=== PATIENT | female | born 1950 | race Caucasian/White ===

== ENCOUNTER 2016-09-26 14:50 | Emergency (ER) | payer MEDICARE, BC ==
[2016-09-26 15:19] VITALS: BP 154/93
[2016-09-26] MEDS ORDERED: Bacitracin Oint 1 GM U/D Packet TOP ONE (15:25)
[2016-09-26] MEDS ORDERED: HYDROmorphone 1 MG/ML Syringe IM ONE (15:25)
[2016-09-26] MEDS ORDERED: Lidocaine 1% 20 ML MDV INJECT ONE (15:26)
--- NOTE | 2016-09-26 15:29 | EDM.PDOC ---
ED HPI GENERAL MEDICAL PROBLEM - General Chief Complaint: Upper Extremity Injury/Pain Stated Complaint: RIGHT PINKY FINGER SMASHED IN BOAT LIFT Time Seen by Provider: 09/26/16 15:24 Source of Information: Reports: Patient, Family, RN Notes Reviewed History Limitations: Reports: No Limitations - History of Present Illness INITIAL COMMENTS - FREE TEXT/NARRATIVE: 66-year-old female presents emergency department today with a crush injury to her fifth digit on her right hand she accidentally got this caught in a boat lift distal aspect did get caught she does have a laceration and she has difficulty moving the distal aspect of that finger Right Hand Pain Score (Numeric/FACES): 9 - Related Data Allergies Allergy/AdvReac Type Severity Reaction Status Date / Time Sulfa (Sulfonamide Allergy Rash Verified 09/26/16 15:17 Antibiotics) Home Meds: Home Meds Levothyroxine [Synthroid] 75 mcg PO ACBRK 09/04/13 [History] Simvastatin [Zocor] 20 mg PO BEDTIME 09/04/13 [History] Rivaroxaban [Xarelto] 20 mg PO DAILY 09/26/16 [History] amLODIPine [Norvasc] 1 tab PO DAILY 09/26/16 [History] Past Medical History Cardiovascular History: Reports: High Cholesterol, Hypertension Endocrine/Metabolic History: Reports: Hypothyroidism Social & Family History - Tobacco Use Smoking Status *Q: Never Smoker Second Hand Smoke Exposure: No - Alcohol Use Days Per Week of Alcohol Use: 0 - Recreational Drug Use Recreational Drug Use: No Review of Systems - Review of Systems Review Of Systems: See Below Constitutional: Reports: No Symptoms Musculoskeletal: Reports: Other (Finger pain) Skin: Reports: Wound Neurological: Reports: No Symptoms ED EXAM, GENERAL - Physical Exam Exam: See Below Free Text/Narrative:: Examination of the right hand she does have a laceration along the lateral aspect of the nail on digit #5 she has limited range of motion of the distal aspect of digit #5 I don't appreciate any significant deformity, radial pulse is 2+ sensation is intact. After digital blockade closer examination of the nail bed nail is partially avulsed there is a laceration underneath the nail bed ED TRAUMA EXTREMITY PROCEDURES - Laceration/Wound Repair Finger Lac/Wound Length In cm: 0.5 (Nail bed repair) Appearance: Irregular Distal NVT: Neuro & Vascular Intact, No Tendon Injury Anesthetic Type: Digital Local Anesthesia - Lidocaine (Xylocaine): 1% Plain Local Anesthetic Volume: 3cc Skin Prep: Chlorhexidine (Hibiciens) Saline Irrigation (cc's): 20 Exploration/Debridement/Repair: Wound Explored, in a Bloodless Field, Explored to Base Closed With: Sutures Suture Size: other (6-0) # of Sutures: 2 (2 sutures were used to replaced the nail on top of the nail bed ) Suture Type: Prolene Sterile Dressing Applied: Nurse Tetanus Status Addressed: Yes (2010) Complications: No Course - Vital Signs Last Recorded V/S: Last Vital Signs Temp 99.0 F 09/26/16 15:16 Pulse 84 09/26/16 15:16 Resp 16 09/26/16 15:16 BP 154/93 H 09/26/16 15:16 Pulse Ox 96 09/26/16 15:16 - Orders/Labs/Meds Meds: Medications Discontinued Medications Generic Name Dose Route Start Last Admin Trade Name Freq PRN Reason Stop Dose Admin Bacitracin 1 dose 09/26/16 15:25 09/26/16 15:32 Bacitracin Oint 1 Gm TOP 09/26/16 15:26 1 dose ONETIME ONE Administration Cefazolin Sodium 1 gm 09/26/16 17:03 09/26/16 17:26 Ancef IM 09/26/16 17:04 1 gm ONETIME ONE Administration Hydromorphone HCl 1 mg 09/26/16 15:25 09/26/16 15:32 Dilaudid IM 09/26/16 15:26 1 mg ONETIME ONE Administration Lidocaine HCl 20 ml 09/26/16 15:26 09/26/16 15:32 Xylocaine 1% INJECT 09/26/16 15:27 20 ml ONETIME ONE Administration Silver Nitrate Confirm 09/26/16 16:46 09/26/16 17:25 Silver Nitrate Administered 09/26/16 16:47 Not Given Dose 1 each .ROUTE .STK-MED ONE Silver Nitrate 1 each 09/26/16 17:04 09/26/16 17:05 Silver Nitrate TOP 09/26/16 17:05 1 each ONETIME ONE Administration Sterile Water 2.5 ml 09/26/16 17:16 09/26/16 17:26 Sterile Water For Injection INJECT 09/26/16 17:17 2.5 ml NOW STA Administration Sterile Water Confirm 09/26/16 17:15 09/26/16 17:25 Sterile Water For Injection Administered 09/26/16 17:16 Not Given Dose 10 ml .ROUTE .STK-MED ONE Departure - Departure Time of Disposition: 17:07 Disposition: Home, Self-Care 01 Condition: Good Clinical Impression: Open fracture of phalanx of right little finger Qualifiers: Encounter type: initial encounter Phalanx: distal Fracture alignment: nondisplaced Qualified Code(s): S62.666B - Nondisplaced fracture of distal phalanx of right little finger, initial encounter for open fracture - Discharge Information Instructions: Crush Injury, Fingers or Toes, [id number], Laceration Care, Adult, [id number] Referrals: Tess aCtalan PA [Primary Care Provider] - Forms: ED Department Discharge Additional Instructions: Take full course of antibiotics, use hydrocodone as needed for pain control, please follow-up with orthopedics on at 9:45 AM, call return to the emergency department worsening of symptoms - Assessment/Plan Plan: Assessment Acuity = acute Site and laterality = crush injury with fracture of distal aspect digit #5 right hand with nail bed laceration status post repair Etiology = crush injury on a boat lift Manifestations = pain Location of injury = Home Lab values = none Plan Called discussed case with orthopedics on-call they would like to see patient in clinic next at 939 morning, she will be placed on antibiotics of Keflex 1500 mg per day pain control hydrocodone total #20 she was given 1 g Ancef prior to discharge Patient was in agreement with the plan all questions were answered, they were instructed to return to the emergency department or call for worsening symptoms. This note was dictated using [employer] voice recognition software please call with any questions.
[2016-09-26] MEDS ORDERED: Silver Nitrate Applicator Each ONE (16:46)
[2016-09-26] MEDS ORDERED: ceFAZolin 1 GM Vial IM ONE (17:03)
[2016-09-26] MEDS ORDERED: Silver Nitrate Applicator Each TOP ONE (17:04)
[2016-09-26] MEDS ORDERED: Water For Injection, Sterile 10 ML SDV ONE (17:15)
[2016-09-26] MEDS ORDERED: WATER FOR INJECTION STERILE INJECT STA (17:16)
--- NOTE | 2016-09-27 09:18 | CR ---
Fingers Fifth Digit Rt F9 HISTORY: Injury COMPARISON: None FINDINGS: There is a fracture of the mid tuft of the right fifth finger with minimal displacement. N o foreign body seen.
--- NOTE | 2016-10-08 12:16 | EDM.PDOC ---
ED HPI GENERAL MEDICAL PROBLEM - General Chief Complaint: Upper Extremity Injury/Pain Stated Complaint: RIGHT PINKY FINGER SMASHED IN BOAT LIFT Time Seen by Provider: 09/26/16 15:24 Source of Information: Reports: Patient, Family, RN Notes Reviewed History Limitations: Reports: No Limitations - History of Present Illness INITIAL COMMENTS - FREE TEXT/NARRATIVE: Examination of the right hand she does have a laceration along the lateral aspect of the nail on digit #5 she has limited range of motion of the distal aspect of digit #5 I don't appreciate any significant deformity, radial pulse is 2+ sensation is intact. After digital blockade closer examination of the nail bed nail is partially avulsed there is a laceration underneath the nail bed Right Hand Pain Score (Numeric/FACES): 9 - Related Data Allergies Allergy/AdvReac Type Severity Reaction Status Date / Time Sulfa (Sulfonamide Allergy Rash Verified 09/26/16 15:17 Antibiotics) Home Meds: Home Meds Levothyroxine [Synthroid] 75 mcg PO ACBRK 09/04/13 [History] Simvastatin [Zocor] 20 mg PO BEDTIME 09/04/13 [History] Rivaroxaban [Xarelto] 20 mg PO DAILY 09/26/16 [History] amLODIPine [Norvasc] 1 tab PO DAILY 09/26/16 [History] Past Medical History Cardiovascular History: Reports: High Cholesterol, Hypertension 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: Reports: Musculoskeletal History: Reports: Osteoarthritis Endocrine/Metabolic History: Reports: Hypothyroidism - Past Surgical History HEENT Surgical History: Reports: LASIK, Other (See Below) Other HEENT Surgeries/Procedures: dental implants Cardiovascular Surgical History: Reports: Cardiac Ablation GI Surgical History: Reports: Cholecystectomy Female Surgical History: Reports: Hysterectomy, Other (See Below) Other Female Surgeries/Procedures: bladder repair Musculoskeletal Surgical History: Reports: Arthroscopic Knee, Knee Replacement Social & Family History - Tobacco Use Smoking Status *Q: Never Smoker Second Hand Smoke Exposure: No - Alcohol Use Days Per Week of Alcohol Use: 0 - Recreational Drug Use Recreational Drug Use: No ED EXAM, GENERAL - Physical Exam Free Text/Narrative:: Examination of the right hand she does have a laceration along the lateral aspect of the nail on digit #5 she has limited range of motion of the distal aspect of digit #5 I don't appreciate any significant deformity, radial pulse is 2+ sensation is intact. After digital blockade closer examination of the nail bed nail is partially avulsed there is a laceration underneath the nail bed Course - Vital Signs Last Recorded V/S: Last Vital Signs Temp 99.0 F 09/26/16 15:16 Pulse 84 09/26/16 15:16 Resp 16 09/26/16 15:16 BP 154/93 H 09/26/16 15:16 Pulse Ox 96 09/26/16 15:16 - Orders/Labs/Meds Meds: Medications Discontinued Medications Generic Name Dose Route Start Last Admin Trade Name Mena PRN Reason Stop Dose Admin Bacitracin 1 dose 09/26/16 15:25 09/26/16 15:32 Bacitracin Oint 1 Gm TOP 09/26/16 15:26 1 dose ONETIME ONE Administration Cefazolin Sodium 1 gm 09/26/16 17:03 09/26/16 17:26 Ancef IM 09/26/16 17:04 1 gm ONETIME ONE Administration Hydromorphone HCl 1 mg 09/26/16 15:25 09/26/16 15:32 Dilaudid IM 09/26/16 15:26 1 mg ONETIME ONE Administration Lidocaine HCl 20 ml 09/26/16 15:26 09/26/16 15:32 Xylocaine 1% INJECT 09/26/16 15:27 20 ml ONETIME ONE Administration Silver Nitrate Confirm 09/26/16 16:46 09/26/16 17:25 Silver Nitrate Administered 09/26/16 16:47 Not Given Dose 1 each .ROUTE .STK-MED ONE Silver Nitrate 1 each 09/26/16 17:04 09/26/16 17:05 Silver Nitrate TOP 09/26/16 17:05 1 each ONETIME ONE Administration Sterile Water 2.5 ml 09/26/16 17:16 09/26/16 17:26 Sterile Water For Injection INJECT 09/26/16 17:17 2.5 ml NOW STA Administration Sterile Water Confirm 09/26/16 17:15 09/26/16 17:25 Sterile Water For Injection Administered 09/26/16 17:16 Not Given Dose 10 ml .ROUTE .STK-MED ONE Departure - Departure Disposition: Home, Self-Care 01 Condition: Good Clinical Impression: Open fracture of phalanx of left little finger Qualifiers: Encounter type: initial encounter Phalanx: distal Fracture alignment: nondisplaced Qualified Code(s): S62.667B - Nondisplaced fracture of distal phalanx of left little finger, initial encounter for open fracture - Discharge Information Instructions: Crush Injury, Fingers or Toes, [id number], Laceration Care, Adult, [id number] Referrals: Tess Catalan PA [Primary Care Provider] - Forms: ED Department Discharge Additional Instructions: Take full course of antibiotics, use hydrocodone as needed for pain control, please follow-up with orthopedics on at 9:45 AM, call return to the emergency department worsening of symptoms
== END 2016-09-26 18:07 | disposition home or self-care (01) ==
LOC: JP.ED 14:50
DX: S62.666B Nondisplaced fracture of distal phalanx of right little finger, initial encounter for open fracture (principal); I10 Essential (primary) hypertension; Z88.2 Allergy status to sulfonamides; Z79.899 Other long term (current) drug therapy; E03.9 Hypothyroidism, unspecified; E78.00 Pure hypercholesterolemia, unspecified; W23.0XXA Caught, crushed, jammed, or pinched between moving objects, initial encounter
CPT/HCPCS: 11760; 73140; 96372; 99283; 99284; J0690; J1170